=== PATIENT | female | born 1930 ===

== ENCOUNTER 2019-11-27 20:24 | Emergency (ER) | payer OTHER ==
[~2019-11-27] VITALS: Ht 157.5 cm; Wt 81.6 kg
[2019-11-27] MEDS ORDERED: LIPITOR20 MG (20:51)
[2019-11-27] MEDS ORDERED: ZESTRIL40 M1 (20:51)
[2019-11-27] MEDS ORDERED: LEVOTHYROXINE25 MCG (20:51)
[2019-11-27] MEDS ORDERED: HYDROCHLOROTHIA25 MG (20:51)
[2019-11-27] MEDS ORDERED: ATIVAN1 M1 (20:52)
[2019-11-27] MEDS ORDERED: FOLIC ACID0.8 M1 (20:52)
[2019-11-27] MEDS ORDERED: NOXIFOL-D32500 UNIT (20:52)
[2019-11-27] MEDS ORDERED: PROAIR RESPICL90 MCG (20:53)
[2019-11-27] MEDS ORDERED: CROMOLYN S20 MG/1 ML (20:54)
== END 2019-11-27 23:49 | disposition home or self-care (01) ==
LOC: ER 20:24
DX: L27.1 Localized skin eruption due to drugs and medicaments taken internally (principal); T49.0X5A Adverse effect of local antifungal, anti-infective and anti-inflammatory drugs, initial encounter; Y92.89 Other specified places as the place of occurrence of the external cause

== ENCOUNTER 2020-03-19 13:55 | Inpatient (IN) | payer OTHER ==
[~2020-03-19] VITALS: Ht 157.5 cm; Wt 81.6 kg
[~2020-03-19 13:55] MED LIST: ATIVAN1 M1; CROMOLYN S20 MG/1 ML; FOLIC ACID0.8 M1; HYDROCHLOROTHIA25 MG; LEVOTHYROXINE25 MCG; LIPITOR20 MG; MELOXICAM15 MG PO; NOXIFOL-D32500 UNIT; PROAIR RESPICL90 MCG; ZANAFLEX2 MG PO; ZESTRIL40 M1
[2020-03-19] MEDS ORDERED: MAXIMUM D3325 MCG PO (14:14)
[2020-03-19] MEDS ORDERED: ATIVAN1 M1 PO (14:16)
[2020-03-19] MEDS ORDERED: LIPITOR40 M1 PO (14:16)
[2020-03-19] MEDS ORDERED: TIROSINT25 MCG PO (14:16)
[2020-03-19] MEDS ORDERED: TIZANIDINE HCL2 M1 PO (14:17)
== END 2020-03-22 12:42 | disposition designated cancer center or children's hospital (05) | DRG 311 ==
LOC: ER 13:55 → MEDI 03-20 11:46 → SURH 03-20 11:46 → MEDJ 03-20 13:22 → SURH 03-20 13:59
PROVIDERS: ADMIT Internal Medicine; ATTEND Internal Medicine
PROC: 4A033R1 Measurement of Arterial Saturation, Peripheral, Percutaneous Approach (ICD-10-PCS; principal; 2020-03-19)
PROC: 3E0F7SF Introduction of Other Gas into Respiratory Tract, Via Natural or Artificial Opening (ICD-10-PCS; 2020-03-19)
PROC: 4A12X4Z Monitoring of Cardiac Electrical Activity, External Approach (ICD-10-PCS; 2020-03-20)
PROC: B24BZZZ Ultrasonography of Heart with Aorta (ICD-10-PCS; 2020-03-21)
DX: I24.9 Acute ischemic heart disease, unspecified (principal); I50.22 Chronic systolic (congestive) heart failure; Z20.822 Contact with and (suspected) exposure to COVID-19; E03.9 Hypothyroidism, unspecified; I35.0 Nonrheumatic aortic (valve) stenosis; I11.0 Hypertensive heart disease with heart failure; J44.9 Chronic obstructive pulmonary disease, unspecified